=== PATIENT | female | born 1995 | race African-American/Black ===

== ENCOUNTER 2023-02-09 16:53 | Emergency (ER) | payer SELFPAY ==
[~2023-02-09] VITALS: Ht 170.2 cm; Wt 63.0 kg
[2023-02-09 16:56] VITALS: BP 112/76; PULSE 96; RESP 14; TEMP 97.1; O2SAT 100
[2023-02-09] MEDS ORDERED: ONDANSETRON HCL 4MG/2ML INJ IV STA (17:16)
[2023-02-09] MEDS ORDERED: SODIUM CHLORIDE 0.9% 1,000 ML IV ONE (17:30)
[2023-02-09 17:32] LABS: BASOPHILS % 0.3 % (0.0-2.0); HEMOGLOBIN. 10.1 g/dL (12.0-16.0); LYMPHOCYTES % 21.9 % (20.0-50.0); MEAN CORPUSCULAR HEMOGLOBIN 25.9 pg (28.0-32.0); MEAN CORPUSCULAR HGB CONC 31.7 g/dL (31.0-37.0); MEAN CORPUSCULAR VOLUME 81.7 fL (81.0-99.0); MEAN PLATELET VOLUME 7.9 fl (7.4-10.4); MONOCYTES % 12.2 % (2.0-8.0); NEUTROPHILS % 65.6 % (40.0-76.0); PLATELET 353 x1000/uL (130-400); RED BLOOD CELL COUNT 3.91 mill/uL (4.2-5.4); RED CELL DISTRIBUTION WIDTH 16.4 % (11.6-14.6); WHITE BLOOD COUNT 5.7 x1000/uL (4.5-11.0)
[2023-02-09 17:52] LABS: AMMONIA < 10 uMol/L (<32)
[2023-02-09 17:54] LABS: HCG SCREEN NEGATIVE
[2023-02-09 18:02] LABS: ACETAMINOPHEN < 2 ug/mL (10-30); ALANINE AMINOTRANSFERASE 16 IU/L (10-49); ALBUMIN 4.4 g/dL (3.2-4.8); ASPARTATE AMINOTRANSFERASE 25 IU/L (<34); BILIRUBIN TOTAL 0.9 mg/dL (0.1-1.0); CALCIUM 9.3 mg/dL (8.7-10.4); CARBON DIOXIDE 18 mEq/L (21-32); CHLORIDE 107 mEq/L (98-107); ETHANOL BLOOD 211 mg/dL (<10); GLUCOSE 106 mg/dL (70-105); POTASSIUM 3.3 mEq/L (3.5-5.1); PROTEIN TOTAL 6.8 g/dL (6.0-8.3); SODIUM 140 mEq/L (136-145); UREA NITROGEN BLOOD 6 mg/dL (9-23)
[2023-02-09 18:43] LABS: LACTIC ACID 4.8 mmol/L (0.4-2.0)
== END 2023-02-09 18:48 | disposition home or self-care (01) ==
LOC: ER 16:53
DX: T42.8X1A Poisoning by antiparkinsonism drugs and other central muscle-tone depressants, accidental (unintentional), initial encounter (principal); X58.XXXA Exposure to other specified factors, initial encounter
CPT/HCPCS: 80053; 80307; 80329; 80320; 82140; 84703; 83605; 83690; 85025; 36415; 93005; 96361; 96374; 99284; J2405; J7030; G0480